=== PATIENT | female | born 1945 | race Caucasian/White ===

== ENCOUNTER → 2016-12-09 | Outpatient (CLI) | payer BC ==
[~2016-12-09] MED LIST: ASPIRIN 81M81 MG/TA2 PO; BENICAR40 MG PO; CARDIZEM LA120 MG PO; ELITE MAGNESIUM1 TAB PO; FISH OIL SUPER1 SGL PO; HCTZ12.5TAB PO; K-DUR 10 MEQ T10 MEQ PO; MAGNESIUM250 M1 PO; POTASSIUM GLUCO80 MG PO; ZYRTEC 10MG10 MG PO
== END ==
LOC: MC.RAD 14:57
DX: Z12.31 Encounter for screening mammogram for malignant neoplasm of breast (principal)

== ENCOUNTER 2017-05-01 07:20 | Day surgery (SDC) | payer BC ==
[2017-05-01] VITALS (8 sets, daily range): BP systolic 112–150; BP diastolic 62–109; PULSE 77–106
[~2017-05-01] VITALS: Ht 175.3 cm; Wt 88.2 kg
[~2017-05-01 07:20] MED LIST changes: +EPA FISH OIL1 SGL PO; -FISH OIL SUPER1 SGL PO
[2017-05-01 08:27] LABS: HEMATOCRIT 41.6 % (37.0-47.0); HEMOGLOBIN 14.1 g/dl (12.5-16.0); MEAN CELL VOLUME 91 fl (80.0-100.0); MEAN CORPUSCULAR HEMOGLOBIN 31 pg (27.0-31.0); MEAN CORPUSCULAR HGB CONC 34 g/dl (33.0-37.0); MEAN PLATELET VOLUME 9.1 fl (7.4-10.4); PLATELET COUNT 303 K/mm3 (130-400); RED BLOOD COUNT 4.58 M/mm3 (4.10-5.30); WHITE BLOOD COUNT 8.2 K/mm3 (4.8-10.8)
[2017-05-01 08:35] LABS: CALCIUM 9.3 mg/dL (8.4-10.2); CREATININE, serum 0.96 mg/dL (0.52-1.25); INR 2.3 (0.8-3.0); POTASSIUM 3.7 mmol/L (3.4-5.0); PROTHROMBIN TIME 25.8 SECONDS (9.7-12.8)
[2017-05-01] MEDS ORDERED: CARDIZEM LA120 MG PO (08:48)
[2017-05-01] MEDS ORDERED: XARELTO20 MG PO (08:58)
[2017-05-01] MEDS ORDERED: NEXIUM 20MG20 MG PO (09:01)
[2017-05-01] MEDS ORDERED: FIBER0.52 GM PO (09:02)
[2017-05-01] MEDS ORDERED: MICROZIDE12.5 MG PO (09:03)
[2017-05-01] MEDS ORDERED: FLONASEALLERGY NS (09:03)
[2017-05-01] MEDS ORDERED: TYLENOL 8 HR PO (09:04)
[2017-05-01] MEDS ORDERED: TAMBOCOR 1100 MG/TAB PO (11:45)
== END 2017-05-01 12:01 | disposition home or self-care (01) ==
LOC: COL.CAR 07:20
PROVIDERS: Internal Medicine Cardiovascular Disease
DX: Z95.818 Presence of other cardiac implants and grafts (principal); I48.91 Unspecified atrial fibrillation; E78.5 Hyperlipidemia, unspecified; I10 Essential (primary) hypertension; I95.1 Orthostatic hypotension; Z79.01 Long term (current) use of anticoagulants; Z90.710 Acquired absence of both cervix and uterus; Z82.49 Family history of ischemic heart disease and other diseases of the circulatory system
CPT/HCPCS: J0282; J2250; J2704; J3010; J7040

== ENCOUNTER 2017-06-10 09:54 | Emergency (ER) | payer BC, MEDICARE ==
[~2017-06-10] VITALS: Ht 175.3 cm; Wt 84.1 kg
[~2017-06-10 09:54] MED LIST changes: +FIBER0.52 GM PO; +FLONASEALLERGY NS; +MICROZIDE12.5 MG PO; +NEXIUM 20MG20 MG PO; +TAMBOCOR 1100 MG/TAB PO; +TYLENOL 8 HR PO; +XARELTO20 MG PO
[2017-06-10 10:14] VITALS: TEMP 97
[2017-06-10 10:19] LABS: BASO % 0.5 % (0.0-2.0); EOS # 0.1 (0.0-0.7); EOS % 1.2 % (0-4.0); GRAN # 3.5 (1.4-6.5); GRAN % 45.1 % (42.2-75.2); HEMATOCRIT 41.4 % (37.0-47.0); HEMOGLOBIN 13.6 g/dl (12.5-16.0); LYMPH # 3.5 (1.2-3.4); LYMPH % 45.5 % (20.0-51.0); MEAN CELL VOLUME 93 fl (80.0-100.0); MEAN CORPUSCULAR HEMOGLOBIN 31 pg (27.0-31.0); MEAN CORPUSCULAR HGB CONC 33 g/dl (33.0-37.0); MEAN PLATELET VOLUME 8.9 fl (7.4-10.4); MONO # 0.6 (0.1-0.6); MONO % 7.4 % (1.7-9.3); PLATELET COUNT 298 K/mm3 (130-400); RED BLOOD COUNT 4.45 M/mm3 (4.10-5.30); WHITE BLOOD COUNT 7.7 K/mm3 (4.8-10.8)
[2017-06-10 10:21] LABS: INR 2.4 (0.8-3.0); PROTHROMBIN TIME 27.8 SECONDS (9.7-12.8)
[2017-06-10 10:24] LABS: PARTIAL THROMBOPLASTIN TIME 41.6 SECONDS (26.0-37.0)
[2017-06-10 10:32] LABS: ALANINE AMINOTRANSFERASE 37 U/L (9-52); ALBUMIN 4.6 gm/dL (3.5-5.0); ALKALINE PHOSPHATASE 75 U/L (50-136); ANION GAP 13 mmol/L (7-16); BILIRUBIN,TOTAL 0.8 mg/dL (0.0-1.0); BLOOD UREA NITROGEN 15 mg/dL (7-17); CALCIUM 9.5 mg/dL (8.4-10.2); CARBON DIOXIDE 24 mmol/L (22-30); CHLORIDE 101 mmol/L (98-107); CREATININE, serum 0.99 mg/dL (0.52-1.25); GLUCOSE 128 mg/dL (74-106); PHOSPHOROUS 4.2 mg/dL (2.5-4.5); SODIUM 138 mmol/L (137-145); TOTAL PROTEIN 7.4 gm/dL (6.4-8.2)
[2017-06-10 10:43] LABS: B-TYPE NATRIURETIC PEPTIDE 327 pg/mL (0-125)
[2017-06-10 10:44] LABS: TROPONIN-I < 0.012 ng/mL (0.000-0.034)
[2017-06-10 12:00] VITALS: BP 138/84; PULSE 72
== END 2017-06-10 12:20 | disposition home or self-care (01) ==
LOC: COL.ER 09:54
PROVIDERS: Emergency Medicine
DX: I48.91 Unspecified atrial fibrillation (principal); R06.00 Dyspnea, unspecified; I10 Essential (primary) hypertension; Z79.01 Long term (current) use of anticoagulants
CPT/HCPCS: J7040

== ENCOUNTER → 2018-01-30 | Outpatient (CLI) | payer BC, MEDICARE | LOC: MC.RAD 10:59 | DX: Z12.31 Encounter for screening mammogram for malignant neoplasm of breast (principal) ==

== ENCOUNTER → 2019-04-22 | Outpatient (CLI) | payer MEDICARE, OTHER | LOC: MC.RAD 11:12 | DX: Z12.31 Encounter for screening mammogram for malignant neoplasm of breast (principal) ==

== ENCOUNTER 2020-07-05 14:57 | Outpatient (CLI) | payer MEDICARE, OTHER ==
[~2020-07-05] VITALS: Ht 175.3 cm; Wt 87.7 kg
[2020-07-05] VITALS (10 sets, daily range): BP systolic 94–156; BP diastolic 66–89; PULSE 73–84; TEMP 98.2–99.6
[2020-07-05] MEDS ORDERED: COZAAR100 MG PO (15:42)
[2020-07-05] MEDS ORDERED: NEXLETOL180 MG PO (15:42)
[2020-07-05] MEDS ORDERED: HCTZ12.5TAB PO (15:44)
[2020-07-05] MEDS ORDERED: TURMERIC500 MG PO (15:44)
[2020-07-05] MEDS ORDERED: PHARMASSURE ZIN50 MG PO (15:45)
[2020-07-05] MEDS ORDERED: VITAMIN D 400400 IU PO (15:46)
[2020-07-05] MEDS ORDERED: VITAMIN C500 MG PO (15:47)
--- NOTE | 2020-07-05 17:28 | NUR ---
Pt tolerated BAM infusion well. She denies any symptoms of adverse or allergic reaction. she was ambulatory to bathroom with about 35 min of monitoring remaining, gait was steady. Pt was escorted to exit via wheelchair at the conclusion of her monitoring period.
== END 2020-07-05 17:10 | disposition home or self-care (01) ==
LOC: EUO 14:57
DX: U07.1 COVID-19 (principal)
CPT/HCPCS: J7050

== ENCOUNTER → 2021-04-11 | Outpatient (CLI) | payer MEDICARE, OTHER ==
[~2021-04-11] MED LIST changes: +COZAAR100 MG PO; +NEXLETOL180 MG PO; +PHARMASSURE ZIN50 MG PO; +TURMERIC500 MG PO; +VITAMIN C500 MG PO; +VITAMIN D 400400 IU PO
== END ==
LOC: MC.RAD 09:10
DX: Z12.31 Encounter for screening mammogram for malignant neoplasm of breast (principal)

== ENCOUNTER 2023-09-12 08:15 | Emergency (ER) | payer MEDICARE, OTHER ==
[~2023-09-12] VITALS: Ht 175.3 cm; Wt 78.6 kg
[2023-09-12 08:22] VITALS: TEMP 98.7
[2023-09-12 09:23] LABS: BASO % 0.2 % (0.0-2.0); GRAN # 14.4 K/mm3 (1.4-6.5); GRAN % 84.2 % (42.2-75.2); HEMATOCRIT 44.2 % (37.0-47.0); HEMOGLOBIN 15.1 g/dl (12.5-16.0); LYMPH # 1.4 K/mm3 (1.2-3.4); LYMPH % 8.2 % (20.0-51.0); MEAN CELL VOLUME 93 fl (80.0-100.0); MEAN CORPUSCULAR HEMOGLOBIN 32 pg (27-31); MEAN CORPUSCULAR HGB CONC 34 g/dl (33.0-37.0); MEAN PLATELET VOLUME 9.1 fl (7.4-10.4); MONO # 1.2 K/mm3 (0.1-0.6); MONO % 6.9 % (1.7-9.3); PLATELET COUNT 296 K/mm3 (130-400); RED BLOOD COUNT 4.73 M/mm3 (4.10-5.30); REDCELL DISTRIBUTION WIDTH-CV 12.8 % (11.5-14.5)
[2023-09-12] MEDS ORDERED: Morphine 4 MG/ML VIAL IV ONE (09:30)
[2023-09-12 09:40] LABS: ALBUMIN 3.8 gm/dL (3.4-4.8); CALCIUM 9.8 mg/dL (8.4-10.2); CREATININE, serum 1.02 mg/dL (0.57-1.11); POTASSIUM 4.3 mmol/L (3.5-4.5); TOTAL PROTEIN 7.3 gm/dL (6.2-8.1)
[2023-09-12 09:45] LABS: TROPONIN-I 0.017 ng/mL (0.00-0.033)
[2023-09-12] MEDS ORDERED: OXY IR5 MG PO (12:19)
[2023-09-12] MEDS ORDERED: ROXICODONE 55 MG/TAB PO (12:26)
[2023-09-12 13:04] VITALS: BP 132/78; PULSE 74
== END 2023-09-12 13:25 | disposition home or self-care (01) ==
LOC: COL.ER 08:15
PROVIDERS: Emergency Medicine
DX: R05.9 Cough, unspecified (principal); R07.89 Other chest pain; D72.829 Elevated white blood cell count, unspecified; R07.81 Pleurodynia
CPT/HCPCS: J2270

== ENCOUNTER 2023-09-14 01:29 | Emergency (ER) | payer MEDICARE, OTHER ==
[~2023-09-14] VITALS: Ht 170.2 cm; Wt 78.6 kg
[~2023-09-14 01:29] MED LIST changes: +OXY IR5 MG PO; +ROXICODONE 55 MG/TAB PO
[2023-09-14 01:35] VITALS: TEMP 98.4
[2023-09-14] MEDS ORDERED: Magnesium Sulfate 4% 50 ML IV ONE (02:00)
[2023-09-14] MEDS ORDERED: NS 500 ML IV ONE ×2 (02:00→07:00)
[2023-09-14] MEDS ORDERED: Amiodarone 450 MG in D5W Excel 250 ML IV SCH ×2 (02:11→08:11)
[2023-09-14 02:18] LABS: HEMATOCRIT 43.8 % (37.0-47.0); HEMOGLOBIN 14.2 g/dl (12.5-16.0); MEAN CELL VOLUME 97 fl (80.0-100.0); MEAN CORPUSCULAR HEMOGLOBIN 31 pg (27-31); MEAN CORPUSCULAR HGB CONC 32 g/dl (33.0-37.0); MEAN PLATELET VOLUME 9.8 fl (7.4-10.4); PLATELET COUNT 241 K/mm3 (130-400); RED BLOOD COUNT 4.54 M/mm3 (4.10-5.30); REDCELL DISTRIBUTION WIDTH-CV 13.4 % (11.5-14.5)
[2023-09-14 02:25] LABS: PROTHROMBIN TIME 31.2 SECONDS (9.7-12.8)
[2023-09-14 02:37] LABS: BILIRUBIN,TOTAL 0.9 mg/dL (0.2-1.2); CALCIUM 10.1 mg/dL (8.4-10.2); MAGNESIUM 2.1 mg/dL (1.6-2.6); PHOSPHOROUS 3.4 mg/dL (2.3-4.7); POTASSIUM 4.4 mmol/L (3.5-4.5); TOTAL PROTEIN 6.8 gm/dL (6.2-8.1)
[2023-09-14 02:56] LABS: TROPONIN-I 0.029 ng/mL (0.00-0.033); TSH w REFLEX 2.617 uIU/mL (0.350-4.940)
[2023-09-14 03:11] LABS: BAND 2 % (0-10); LYMPHOCYTE 3 % (20.0-51.0); NEUTROPHILS 88 % (42.0-75.2); PLATELET ESTIMATE NORMAL (NORMAL)
[2023-09-14] MEDS ORDERED: NS 1,000 ML IV ONE (04:00)
[2023-09-14] MEDS ORDERED: Ondansetron 4 MG/2 ML VIAL IV ONE (05:15)
[2023-09-14] MEDS ORDERED: Morphine 4 MG/ML VIAL IV ONE (05:15)
[2023-09-14 05:40] LABS: URINE APPEARANCE CLOUDY (CLEAR/HAZY); URINE BLOOD 2+ (NEGATIVE); URINE COLOR Dark Yellow (YELLOW); URINE GLUCOSE NEGATIVE (NEGATIVE); URINE KETONE TRACE (NEGATIVE); URINE NITRATE NEGATIVE (NEGATIVE); URINE PROTEIN(semi-quant) 1+ (NEGATIVE)
[2023-09-14 05:49] LABS: AMORPHOUS CRYSTAL PRESENT (NOT PRESENT); MUCOUS PRESENT (NOT PRESENT); SQUAMOUS EPITHELIAL 20-50 /hpf (0-10); URINE BACTERIA MODERATE /hpf (NONE SEEN); URINE RBC 0-2 /hpf (0-2)
[2023-09-14 05:50] LABS: COLLECTION METHOD CATHETER
[2023-09-14 07:50] VITALS: BP 135/71; PULSE 73
== END 2023-09-14 08:02 | disposition short-term general hospital (02) ==
LOC: COL.ER 01:29
PROVIDERS: Emergency Medicine
DX: I47.20 Ventricular tachycardia, unspecified (principal); I48.91 Unspecified atrial fibrillation; N17.9 Acute kidney failure, unspecified; D72.829 Elevated white blood cell count, unspecified; E88.09 Other disorders of plasma-protein metabolism, not elsewhere classified; R79.89 Other specified abnormal findings of blood chemistry; I10 Essential (primary) hypertension; Z79.01 Long term (current) use of anticoagulants; Z79.899 Other long term (current) drug therapy; Z98.890 Other specified postprocedural states
CPT/HCPCS: J0282; J2270; J2405; J3475; J7030; J7040; J7060